=== PATIENT | female | born 1955 | race Caucasian/White ===

== ENCOUNTER → 2017-08-08 | Outpatient (CLI) | payer BC ==
[~2017-08-08] MED LIST: B-CO1CAP3 PO; BUPRTAB51 PO; DIPH-437 PO; ESCI10TA17 PO; ESTR0.3T PO; FERR1TAB61 PO; PRESSURE VISION
--- NOTE | 2017-08-09 14:37 | MAMMOGRAPHY REPORT ---
BILATERAL DIGITAL SCREENING MAMMOGRAM TOMOSYNTHESIS WITH CAD: 08/08/2017 CLINICAL HISTORY: Routine screening. TECHNIQUE: Breast tomosynthesis in addition to standard 2D mammography was performed. Current study was also evaluated with a Computer Aided Detection (CAD) system. COMPARISON: Comparison is made to exams dated: 07/02/2016 mammogram, 06/29/2015 mammogram, 4 mammogram, 06/23/2013 mammogram, 06/20/2012 mammogram, and 06/15/2011 mammogram - [facility]. BREAST COMPOSITION: The tissue of both breasts is almost entirely fatty. FINDINGS: No suspicious masses, calcifications, or areas of architectural distortion are noted in ei ther breast. There has been no significant interval change compared to prior exams. Small circumscri bed benign-appearing left anterior breast masses are stable. IMPRESSION: ACR BI-RADS CATEGORY 2: BENIGN There is no mammographic evidence of malignancy. A 1 year screening mammogram is recommended. The pa tient will receive written notification of the results. Approximately 10% of breast cancers are not detected with mammography. A negative mammographic report should not delay biopsy if a clinically suggestive mass is present. Ana Christian M.D. ah/:08/08/2017 12:41:22 Salesperson [employer]: Jen WHITMAN(R)(M), [facility] letter sent: Normal 1/2 BI-RADS Code: ACR BI-RADS Category 2: Benign
== END | disposition home or self-care (01) ==
LOC: C.MAMM 08:36
PROVIDERS: ATTEND Obstetrics & Gynecology
DX: Z12.31 Encounter for screening mammogram for malignant neoplasm of breast (principal)

== ENCOUNTER 2025-02-15 06:52 | Observation (INO) ==
--- NOTE | 2025-01-15 10:30 | PAT Medication Instructions ---
Medication Instructions Date of Service January 15, 2025 Home Medications L.acidophilus-B.animalis-B.bifidum 25 billion cell-FOS 100 mg capsule (Probiotic Complex) 1 cap PO QAM cholecalciferol (vitamin D3) 125 mcg (5,000 unit) tablet (Vitamin D3) 125 mcg PO QAM cyanocobalamin (vitamin B-12) 1,000 mcg/mL oral drops (Vitamin B-12) 10 ml PO 3XWK fluoxetine 40 mg capsule 40 mg PO HS magnesium 500 mg tablet 500 mg PO HS multivitamin 1 tab PO QAM omega 9-bcy-gzq-fish oil 1,000 mg (120 mg-180 mg) capsule (Fish Oil) 2 cap PO QAM turmeric 450 mg-turmeric root ext 50 mg-black pepper 2.5 mg capsule (Turmeric with BioPerine) 4 cap PO DAILY vit C 250 mg-vit E 90 mg-zinc 40 mg-copper 1 qh-kiaofd-asscag capsule (PreserVision AREDS-2) 1 tab PO BID STOP taking 2 weeks before surgery (or as soon as possible if surgery is within 2 weeks) omega 3-auj-cap-fish oil 1,000 mg (120 mg-180 mg) capsule (Fish Oil) 2 cap PO QAM turmeric 450 mg-turmeric root ext 50 mg-black pepper 2.5 mg capsule (Turmeric with BioPerine) 4 cap PO DAILY vit C 250 mg-vit E 90 mg-zinc 40 mg-copper 1 ii-fmxpoh-crpddw capsule (PreserVision AREDS-2) 1 tab PO BID DO NOT take the morning of surgery L.acidophilus-B.animalis-B.bifidum 25 billion cell-FOS 100 mg capsule (Probiotic Complex) 1 cap PO QAM cholecalciferol (vitamin D3) 125 mcg (5,000 unit) tablet (Vitamin D3) 125 mcg PO QAM cyanocobalamin (vitamin B-12) 1,000 mcg/mL oral drops (Vitamin B-12) 10 ml PO 3XWK multivitamin 1 tab PO QAM Take evening before surgery fluoxetine 40 mg capsule 40 mg PO HS magnesium 500 mg tablet 500 mg PO HS MORNING OF SURGERY: NOTHING TO EAT OR DRINK AFTER MIDNIGHT Other Notes If you have any questions please call us at [phone] or [phone] or [phone] or [phone]
--- NOTE | 2025-01-20 10:54 | Anesthesiology Consultation ---
Date of Service January 20, 2025 Assessment & Plan (1) Encounter for pre-operative examination: - Infectious disease screening: Per assessment on 01/20/25- No known recent infectious disease contacts or current infectious disease symptoms. - Outpatient joint assessment: Pt currently scheduled for inpatient pathway. If surgeon requests review for outpatient joint pathway, patient is not recommended candidate for outpatient joint program from anesthesia standpoint based on available information. Chart Review Chart Review: Acceptable Risk for Surgery and Patient seen in Pre Admission Testing Teaching & Discussion Pre-Anesthesia Teaching/Discussion Notes: Instructed NPO after midnight before surgery,except medications with 15 cc of water. Medication instructions provided according to the PAT guidelines. History Surgery Operation Date: 02/15/25 09:00 Proposed Procedures p Left Total Knee Arthroplasty - Kash Baez, Height/Weight Height: 5 ft 5 in Weight: 111.3 kg Allergies Allergy/AdvReac Type Severity Reaction Status Date / Time No Known Allergies Allergy Mild Verified 01/12/25 10:21 Medications Home Medications Medication Instructions Recorded Confirmed Last Taken L.acidophilus-B.animalis-B.bifidum 1 cap PO QAM 01/12/25 01/12/25 Unknown 25 billion cell-FOS 100 mg capsule (Probiotic Complex) cholecalciferol (vitamin D3) 125 125 mcg PO QAM 01/12/25 01/12/25 Unknown mcg (5,000 unit) tablet (Vitamin D3) cyanocobalamin (vitamin B-12) 10 ml PO 3XWK 01/12/25 01/12/25 Unknown 1,000 mcg/mL oral drops (Vitamin B-12) fluoxetine 40 mg capsule 40 mg PO HS 01/12/25 01/12/25 Unknown magnesium 500 mg tablet 500 mg PO HS 01/12/25 01/12/25 Unknown multivitamin 1 tab PO QAM 01/12/25 01/12/25 Unknown omega 5-fsz-uhm-fish oil 1,000 mg 2 cap PO QAM 01/12/25 01/12/25 Unknown (120 mg-180 mg) capsule (Fish Oil) turmeric 450 mg-turmeric root ext 4 cap PO DAILY 01/12/25 01/12/25 Unknown 50 mg-black pepper 2.5 mg capsule (Turmeric with BioPerine) vit C 250 mg-vit E 90 mg-zinc 40 1 tab PO BID 01/12/25 01/12/25 Unknown mg-copper 1 sr-qcnhhs-alsxsf capsule (PreserVision AREDS-2) Past Medical History Medical History Anxiety Depression History of COVID-19 ~2020: moderate cold/flu-like symptoms > resolved Osteoarthritis Exercise / Class Metabolic Activity II 4-5 Yardwork/Stairs/Walk up hill (one FS: No CP, no SOB) Past Family History Family History Other No family history of adverse response to anesthesia Past Surgical History Surgical History History of colonoscopy Hx laparoscopic cholecystectomy Hx of cataract extraction R/L Hx of gastric bypass 2007 Hx of hysterectomy RHINA with BSO S/P left knee arthroscopy Past Anesthesia History No Family Hx of Anesthesia Complications and Other (Crying with anesthesia emergence) History of PONV No Hx of PONV and No Hx of Motion Sickness Social History Smoking Status: Never smoker Do You Dip or Chew Tobacco: No Hx Alcohol Use: No Hx Substance Use: No substance use type: does not use Review of Systems Patient denies chest pain, shortness of breath, dyspnea on exertion, fever, chills, cough, wheezing. Physical Exam Vital Signs BP 125/77 P 94 TEMP 98.2 SP02 96%RA RESP 18 Physical Full cervical extension range of motion. Full TMJ range of motion. TMD 3 fingers breaths Mallampati Score I Dentition: intact Lungs: clear throughout to auscultation Cardiac: regular rate and rhythm, no murmurs noted Spine: normal Carotid arteries: negative bruit Extremities: no LE edema Lab Results Anesthesia Preop Results Results Anesthesia Widget: WBC 7.31 K/ul (4.8-10.8) 01/20/25 Hgb 14.6 g/dl (12.0-16.0) 01/20/25 Hct 45.0 % (37.0-47.0) 01/20/25 Plt 207 K/uL (130-400) 01/20/25 Na 139 mmol/L (136-145) 01/20/25 K 4.0 mmol/L (3.5-5.1) 01/20/25 Cl 106 mmol/L (98-107) 01/20/25 CO2 25 mmol/L (21-32) 01/20/25 BUN 19 mg/dl (6-23) 01/20/25 Creat 0.94 mg/dl (0.6-1.2) 01/20/25 Glucose Level 131 mg/dl (70-99(Fasting)) H 01/20/25 PT 10.4 Seconds (9.0-12.0) 01/20/25 PTT 26 Seconds (21-31) 01/20/25 INR 1.0 (0.9-1.1) 01/20/25 Blood Type O Positive 01/20/25 Antibody Screen NEGATIVE 01/20/25 Testing Electrocardiogram Date: 01/20/25 NSR at 90bpm. "Normal ECG" Chest X-Ray Date: 01/20/25 FINDINGS: Heart size and pulmonary vasculature are normal. No consolidation or pleural effusion. Stable tiny right upper lobe nodule. IMPRESSION: No acute findings.
[~2025-02-15 06:52] MED LIST changes: -B-CO1CAP3 PO; +BUPIVACAINE 0.5 % 5 MG/1 ML PF 10ML VIAL ONE; -BUPRTAB51 PO; -DIPH-437 PO; -ESCI10TA17 PO; -ESTR0.3T PO; -FERR1TAB61 PO; -PRESSURE VISION; +ROPIVACAINE 0.5% 5 MG/ML 30 ML VIAL ONE
[2025-02-15] MEDS ORDERED: PROPOFOL IV EMULSION 10 MG/ML 20 ML VIAL IV ONE ×2 (07:33→10:03)
[2025-02-15] MEDS ORDERED: MIDAZOLAM HCL 1 MG/ML 2ML VIAL ONE ×2 (07:34→08:36)
[2025-02-15] MEDS: LR 500ML BOLUS, THEN 15ML/HR IV SCH (07:38)
[2025-02-15] MEDS: ACETAMINOPHEN 500 MG TAB PO SCH ×2 (07:39→14:40)
[2025-02-15] MEDS: FAMOTIDINE 20 MG TAB PO SCH (07:39)
[2025-02-15] MEDS: LR 60ML/HR IV SCH (07:39)
[2025-02-15] MEDS: dexAMETHasone**PF** 10 MG/ML VIAL IV SCH (07:39)
[2025-02-15] MEDS: GABAPENTIN 300 MG CAP PO SCH (07:39)
--- NOTE | 2025-02-15 08:25 | History & Physical Bridge Note ---
Date of Service February 15, 2025 History & Physical Bridge Note I have examined the patient, reviewed the History & Physical and in the interval since the performance of the History & Physical I have noted the following changes of clinical significance: no changes noted
[2025-02-15] MEDS ORDERED: ONDANSETRON INJ 2 MG/ML 2 ML VIAL IV PRN ×2 (08:44→12:40)
[2025-02-15] MEDS ORDERED: ATROPINE SULFATE 0.1 MG/ML 10ML SYR IV PRN (08:44)
[2025-02-15] MEDS: TRANEXAMIC ACID 1,000 MG **IV Pre-op IV SCH (09:00)
[2025-02-15] MEDS ORDERED: PHENYLEPHRINE HCL 10 MG/ML VIAL ONE (09:47)
[2025-02-15] MEDS: ROPIV 0.5% 246mg, Ketorolac 30mg, EPINEPHrine 0.5mg in NSS INFIL SCH (09:56)
[2025-02-15] MEDS: ORTHO JOINT ANESTHETIC ONE (09:57)
--- NOTE | 2025-02-15 10:28 | Operative Report ---
PG Post Operative Report Pre & Post Diagnosis Operation Date: 02/15/25 09:00 Pre-Op Diagnosis: Left Knee Arthritis Post-Op Diagnosis: Left Knee Arthritis I identified the patient and participated in the time-out.: Yes Procedure Operation Date: 02/15/25 09:00 Actual Procedures p Left Total Knee Arthroplasty(Left) - Kash Baez DO Surgeon Kash Baez DO Fire Inspector Sigifredo Demarco PA-C Estimated Blood Loss 30 Findings Consistent with Post-Op Diagnosis Specimens Left femoral and tibial bone Description of Procedure Implants used: I used a Carlos Persona total knee arthroplasty system with a size 8 standard PS femur, E tibia, 31 oval patella, and a size 10 CPS polyethylene bearing. All components were cemented in place with Biomet cement. Ana arrived [facility] for the above procedure. She was seen in the preoperative holding area and the operative extremity was identified and signed. She was given a preoperative antibiotic, TXA, a spinal anesthetic and an adductor nerve block. She was taken back to the operating room and laid on the table in supine position. She was given basic sedation. The operative knee was then prepped and draped in sterile fashion. A timeout was done, and the patient and the operative extremity was properly identified. A midline incision was made directly over the patella. Dissection was taken down to the extensor mechanism. A medial parapatellar arthrotomy was used. The medial retinaculum was released and the fat pad was mostly excised. The knee was flexed and the ACL, PCL, and meniscus were removed. A drill was sent down the center of the femoral canal followed by an intramedullary latha. Off that latha a distal femoral cutting block was placed. 9 mm was resected off the distal femur at 5 of valgus. A posterior referencing AP sizing guide was then placed on the distal femur. The femur measured to be a size 8. 2 drill holes were placed in 3 of external rotation. A 4-in-1 cutting block was then impacted into place. Anterior, posterior, and chamfer cuts were then made. The proximal tibia was then exposed. An external tibial alignment guide was placed. A tibial cut guide was then anchored in place and the proximal tibia was then resected. The posterior aspect of the knee was then opened up and any additional meniscus fragments and osteophytes were removed. The tibia measured to be a size E. The tibial plate was then placed in the appropriate rotation and the tibia was drilled and punched. Trial components were then placed. I used a size 10 CPS polyethylene insert. The knee was brought through a full range of motion and felt to be stable. The peg holes for the femoral component were then drilled. The patella was then everted and 9 mm was resected off the posterior aspect of the patella. The patella measured to be a size 31 oval. 3 peg holes were then drilled. A trial patella was placed. The knee was once again brought through a full range of motion and felt to be stable. Trial components were then removed. The surrounding soft tissues were injected with 100 cc of an orthopedic pain control cocktail. All components were then cemented into place with Biomet cement. The final polyethylene insert was then snapped into place. Once cement was dry the tourniquet was deflated. Hemostasis was obtained. A dilute betadyne lavage was then done for 3 minutes. The joint was then irrigated with normal saline solution. The medial parapatellar arthrotomy was then closed with #1 Vicryl suture. The skin was closed with 2-0 Vicryl, 3-0V lock suture, and pauline. A soft compressive dressing was placed. She was then transferred to a hospital bed and taken to the postanesthesia care unit in stable condition. She tolerated the procedure well. Sigifredo Demarco PA-C, was present for the entire procedure. He was critical for patient positioning, prepping, draping, retraction exposure, wound closure and application of sterile dressing. I attest to the content of the Intraoperative Record and any orders documented therein. Any exceptions are noted below.
[2025-02-15] MEDS ORDERED: ONDANSETRON INJ 2 MG/ML 2 ML VIAL ONE (10:33)
--- NOTE | 2025-02-15 12:02 | XRay Report ---
XR knee LT 1 or 2V routine CLINICAL HISTORY: Surgical Post Op COMPARISON: None FINDINGS: Left knee prosthesis shows no hardware complication. There is expected soft tissue gas. Sk in pauline are present. Wound vacuum is present. IMPRESSION: Unremarkable postoperative exam. ACT 112: Negative or not required by law. Electronically signed by: Dusty Jo M.D. 02/15/2025 12:01 PM
[2025-02-15] MEDS ORDERED: MAGNESIUM HYDROXIDE SUSP 30 ML UDC PO PRN (12:40)
[2025-02-15] MEDS ORDERED: METOCLOPRAMIDE HCL INJ 5 MG/ML 2 ML VIAL IV PRN (12:40)
[2025-02-15] MEDS ORDERED: NALOXONE HCL 0.4 MG/1 ML VIAL/CARP IV PRN (12:40)
--- NOTE | 2025-02-15 13:55 | Anesthesiology Progress Note ---
Date of Service February 15, 2025 Anesthesia Post Procedure Vital Signs Vital Signs: Temp Pulse Pulse Resp BP Pulse Ox O2 Del Method 02/15/25 13:29 97.9 F 103 H 18 113/76 97 Room Air 02/15/25 12:55 97.5 F L 89 16 119/79 96 Room Air 02/15/25 12:28 97.5 F L 88 24 113/75 97 Room Air 02/15/25 12:10 89 12 117/67 93 Room Air 02/15/25 12:00 97.3 F L 88 13 119/69 97 Room Air 02/15/25 11:50 88 12 110/70 96 Room Air 02/15/25 11:40 90 12 111/69 96 Room Air 02/15/25 11:30 91 H 12 99/63 L 96 Oxymask 02/15/25 11:20 91 H 12 100/59 L 96 Oxymask 02/15/25 11:12 97.3 F L 93 H 14 95/60 L 92 Oxymask 02/15/25 07:19 98.2 F 83 20 151/80 H 97 Room Air O2 Flow Rate 02/15/25 13:29 02/15/25 12:55 02/15/25 12:28 02/15/25 12:10 02/15/25 12:00 02/15/25 11:50 02/15/25 11:40 02/15/25 11:30 3 02/15/25 11:20 6 02/15/25 11:12 6 02/15/25 07:19 Transfer of Care Handoff Completed per policy Notes Mental Status: alert / awake / arousable and participated in evaluation Patient Amnestic to Procedure: Yes Nausea / Vomiting: adequately controlled Pain: adequately controlled Airway Patency, RR, SpO2: stable & adequate BP & HR: stable & adequate Hydration State: stable & adequate Neuraxial Anesthesia: was administered and sensory block is resolving Anesthetic Complications: no major complications apparent and Pt Satisfied with anesthetic care
[2025-02-15] MEDS: KETOROLAC TROMETHAMINE 15 MG/ML VIAL IV SCH (14:40)
[2025-02-15] MEDS: SODIUM CHLORIDE 0.9% 1,000 ML IV SCH (14:59)
[2025-02-15] MEDS: DOCUSATE SODIUM 100 MG CAP PO SCH (20:32)
[2025-02-15] MEDS: ASPIRIN 81 MG ECTAB PO SCH (20:32)
[2025-02-15] MEDS: SENNA 8.6 MG TAB PO SCH (20:32)
[2025-02-15] MEDS: diphenhydrAMINE Capsule 25 MG CAP PO ONE (22:34)
[2025-02-16 00:11] VITALS: O2SAT 94
[2025-02-16 07:25] VITALS: BP 120/77; RESP 16; TEMP 98.2
[2025-02-16] MEDS: MULTIVITAMIN TAB PO SCH (08:23)
[2025-02-16] MEDS: HYDROmorphone INJ 0.5 MG/0.5 ML SYR IV PRN (09:45)
--- NOTE | 2025-02-16 11:21 | Orthopedic Progress Note ---
Date of Service February 16, 2025 Assessment & Plan (1) Status post total left knee replacement: * Continue Current Treatment * Disposition: home with home PT * Daily treatment: Physical Therapy/ Occupational Therapy per protocol * Weight bearing status: WBAT * Continue to monitor for ABLA * Pain control * DVT prophylaxis, ASA * Close follow-up with wound care clinic * Office/hospital f/u 2 weeks for progress check and staple/suture removal * Plan for discharge today pending PT/OT clearance Subjective .Active Problems: S/p left TKA POD 1 69 y/o female s/p left TKA. Doing well overall, pain managed and improved function. Denies fever/chills, chest pain/SOB, nausea/vomiting. Otherwise no complaints. Review of Systems All systems reviewed & are unremarkable except as noted in HPI & below. Physical Exam . * General: Alert and oriented, no acute distress * Constitutional: well-developed, well-nourished. * Respiratory: Normal respiratory effort, no distress * Gastrointestinal: No tenderness to palpation, no rigidity or guarding. * Skin: No rash or lesion. * Neurologic: Grossly normal * Musculoskeletal: Left knee surgical dressing CDI, Prevena functioning, not removed for exam. Otherwise no obvious deformity or overlying skin changes RLE. Diffuse TTP distal thigh and knee region. Otherwise no specific tenderness of proximal thigh, lower leg, foot/ankle. AROM knee flexion 80 degrees. AROM foot/ankle intact. Sensation intact plantar/dorsal foot. Brisk capillary refill. Results & Data Results & Data Laboratory Results . Diagnostic Findings . PG Care Time/CCT Total # of Minutes Spent Total Time Spent with Patient: Total time spent is greater than 50% in coordination of care (as documented) at patient's floor/unit and/or counseling patient: Coding Level of Care Code 55249 Post Operative Follow-Up Diagnoses Status post total left knee replacement Z96.652
[2025-02-16 12:07] VITALS: PULSE 89
== END 2025-02-16 16:55 | disposition home health service (06) ==
LOC: 3E 06:52 → ASU 06:52